=== PATIENT | male | born 1950 ===

== ENCOUNTER 2023-03-25 12:33 | Outpatient (CLI) | payer MEDICARE, SELFPAY ==
[2023-03-25 13:02] LABS: ALT 68 U/L (16-63); AST 93 U/L (15-37); Albumin 3.8 g/dL (3.4-5.0); Alkaline Phosphatase 74 U/L (46-116); Bilirubin, Direct 0.6 mg/dL (0.0-0.2); Bilirubin, Total 1.4 mg/dL (0.2-1.0); Total Protein 7.4 g/dL (6.4-8.2)
== END 2023-03-25 12:34 | disposition home or self-care (01) ==
LOC: LBO 12:33
PROVIDERS: Visit Provider Radiology Radiation Oncology
DX: C61 Malignant neoplasm of prostate (principal)
CPT/HCPCS: 36415; 80076